=== PATIENT | female | born 1985 | race Caucasian/White ===

== ENCOUNTER 2023-08-11 05:36 | Emergency (ER) | payer OTHER ==
[2023-08-11 05:45] VITALS: BMI 29.7
[2023-08-11] MEDS ORDERED: ACETAMINOPHEN INJECTION 100 ML IVPB ONE (06:13)
[2023-08-11] MEDS: ACETAMINOPHEN 1000 MG/100 ML BAG IVPB ONE (06:37)
[2023-08-11] MEDS ORDERED: KETOROLAC TROMETHAMINE 30 MG/1 ML VIAL ONE (06:39)
[2023-08-11 06:40] LABS: BASO % 0.5 % (0-2.0); EOS % 0.7 % (0-4.5); HEMATOCRIT 40.6 % (32.4-45.2); HEMOGLOBIN 13.7 GM/dL (10.7-15.3); LYMPH % 22.3 % (8-40); MCH 30.4 pg (25.7-33.7); MCHC 33.8 g/dl (32.0-36.0); MEAN CELL VOLUME 89.9 fl (80-96); MEAN PLT VOLUME 8.2 fl (7.5-11.1); MONO % 4.8 % (3.8-10.2); NEUT % 71.7 % (42.8-82.8); PLATELET COUNT 392 10^3/uL (134-434); RBC 4.52 M/mm3 (3.60-5.2); RDW 13.8 % (11.6-15.6); WHITE BLOOD COUNT 10.2 K/mm3 (4.0-10.0)
[2023-08-11] MEDS: SODIUM CHLORIDE 0.9% 500 ML INFUS.BAG IV ONE (06:52)
[2023-08-11] MEDS: KETOROLAC TROMETHAMINE 30 MG/1 ML VIAL IVPUSH ONE (06:52)
[2023-08-11 06:54] LABS: POTASSIUM 4.1 mmol/L (3.5-5.1)
[2023-08-11 06:56] LABS: CALCIUM 9.4 mg/dL (8.5-10.1)
[2023-08-11 06:57] LABS: ALBUMIN 3.8 g/dl (3.4-5.0); INR 0.95 (0.83-1.09); MAGNESIUM 1.9 mg/dL (1.8-2.4)
[2023-08-11 07:00] LABS: ACTIVATED PTT 27.4 SECONDS (25.2-36.5); CREATININE 0.8 mg/dL (0.55-1.3)
[2023-08-11 07:01] LABS: BILIRUBIN,TOTAL 0.5 mg/dL (0.2-1); TOT PROT 7.6 g/dl (6.4-8.2)
[2023-08-11 07:58] LABS: PH,URINE 6.5 (5.0-8.0); URINE APPEARANCE CLEAR; URINE BILIRUBIN NEGATIVE (NEGATIVE); URINE COLOR YELLOW; URINE GLUCOSE (UA) NEGATIVE (NEGATIVE); URINE KETONE NEGATIVE (NEGATIVE); URINE LEUK ESTERASE NEGATIVE (NEGATIVE); URINE NITRITE NEGATIVE (NEGATIVE); URINE PROTEIN NEGATIVE (NEGATIVE); URINE UROBILINOGEN 0.2 mg/dL (0.2-1.0)
[2023-08-11 10:25] VITALS: BP 119/67; PULSE 74; RESP 16; TEMP 98
== END 2023-08-11 10:56 | disposition home or self-care (01) ==
LOC: JER 05:36
PROC: 3E033NZ Introduction of Analgesics, Hypnotics, Sedatives into Peripheral Vein, Percutaneous Approach (ICD-10-PCS; principal; 2023-08-11)
PROC: 3E033GC Introduction of Other Therapeutic Substance into Peripheral Vein, Percutaneous Approach (ICD-10-PCS; 2023-08-11)
DX: R10.11 Right upper quadrant pain (principal)
CPT/HCPCS: 36415; 74176-TC; 76705-TC; 80053; 81003; 83690; 83735; 84703; 85025; 85610; 85730; 86850; 86900; 86901; 87086; 99284-25; J0131

== ENCOUNTER 2023-08-17 23:30 | Emergency (ER) | payer OTHER ==
[2023-08-17 23:40] VITALS: BP 126/80; PULSE 89; RESP 20; TEMP 98; BMI 30.5
[2023-08-18] MEDS: morphine CARPU-JECT 2 MG/1 ML DISP.SYRIN IVPUSH ONE ×2 (00:08→00:46)
[2023-08-18] MEDS ORDERED: morphine SULFATE 4 MG/ML VIAL ONE ×3 (00:09→02:07)
[2023-08-18] MEDS ORDERED: ONDANSETRON 4 MG/2 ML VIAL ONE (00:09)
[2023-08-18 00:33] LABS: BASO % 0.2 % (0-2.0); EOS % 0.1 % (0-4.5); HEMATOCRIT 39.6 % (32.4-45.2); HEMOGLOBIN 13.5 GM/dL (10.7-15.3); LYMPH % 13.3 % (8-40); MCH 30.6 pg (25.7-33.7); MCHC 34.2 g/dl (32.0-36.0); MEAN CELL VOLUME 89.6 fl (80-96); MEAN PLT VOLUME 8.2 fl (7.5-11.1); MONO % 4.5 % (3.8-10.2); NEUT % 81.9 % (42.8-82.8); PLATELET COUNT 430 10^3/uL (134-434); RBC 4.41 M/mm3 (3.60-5.2); WHITE BLOOD COUNT 18.1 K/mm3 (4.0-10.0)
[2023-08-18 00:40] LABS: INR 1.04 (0.83-1.09); PROTHROMBIN TIME (PATIENT) 12.1 SEC (9.7-13.0)
[2023-08-18 00:43] LABS: ACTIVATED PTT 25.3 SECONDS (25.2-36.5); POTASSIUM 3.6 mmol/L (3.5-5.1)
[2023-08-18 00:46] LABS: ALBUMIN 3.9 g/dl (3.4-5.0); BLOOD UREA NITROGEN 14.7 mg/dL (7-18); CALCIUM 9.7 mg/dL (8.5-10.1)
[2023-08-18] MEDS: LACTATED RINGERS SOLUTION 1000 ML INFUS.BAG IV ONE (00:46)
[2023-08-18] MEDS: ONDANSETRON 4 MG/2 ML VIAL IVPUSH ONE (00:46)
[2023-08-18 00:49] LABS: CREATININE 1.1 mg/dL (0.55-1.3)
[2023-08-18 00:51] LABS: BILIRUBIN,TOTAL 0.7 mg/dL (0.2-1); TOT PROT 7.7 g/dl (6.4-8.2)
[2023-08-18] MEDS: ACETAMINOPHEN 1000 MG/100 ML BAG IVPB ONE ×2 (01:37→02:44)
[2023-08-18] MEDS: LIDOCAINE 5% TOPICAL PATCH TP ONE (01:37)
[2023-08-18] MEDS: morphine CARPU-JECT 4 MG/1 ML DISP.SYRIN IVPUSH ONE (02:39)
[2023-08-18] MEDS ORDERED: ACETAMINOPHEN INJECTION 100 ML IVPB ONE (02:40)
[2023-08-18] MEDS ORDERED: LIDOCAINE PATCH REMOVAL MC SCH (22:00)
== END 2023-08-18 03:47 | disposition home or self-care (01) ==
LOC: JER 23:30
PROC: 3E030NZ Introduction of Analgesics, Hypnotics, Sedatives into Peripheral Vein, Open Approach (ICD-10-PCS; principal; 2023-08-18)
PROC: 3E030NZ Introduction of Analgesics, Hypnotics, Sedatives into Peripheral Vein, Open Approach (ICD-10-PCS; 2023-08-18)
PROC: 3E030GC Introduction of Other Therapeutic Substance into Peripheral Vein, Open Approach (ICD-10-PCS; 2023-08-18)
DX: K80.70 Calculus of gallbladder and bile duct without cholecystitis without obstruction (principal); R10.11 Right upper quadrant pain
CPT/HCPCS: 36415; 76705-TC; 80053; 83690; 84703; 85025; 85610; 85730; 86850; 86900; 86901; 93005; 93010; 99285-25; J0131

== ENCOUNTER 2023-08-18 13:10 | Day surgery (SDC) | payer OTHER ==
[2023-08-18 13:16] VITALS: BMI 29.0
[2023-08-18] MEDS ORDERED: ONDANSETRON 4 MG/2 ML VIAL ONE (13:49)
[2023-08-18] MEDS: ONDANSETRON 4 MG/2 ML VIAL IVPUSH ONE (14:37)
[2023-08-18] MEDS ORDERED: morphine SULFATE 4 MG/ML VIAL ONE (14:39)
[2023-08-18] MEDS: morphine CARPU-JECT 4 MG/1 ML DISP.SYRIN IVPUSH ONE ×2 (14:42)
[2023-08-18] MEDS: SODIUM CHLORIDE 0.9% 500 ML INFUS.BAG IV ONE (14:42)
[2023-08-18 15:09] LABS: BASO % 0.1 % (0-2.0); EOS % 0.1 % (0-4.5); HEMATOCRIT 38.7 % (32.4-45.2); HEMOGLOBIN 12.9 GM/dL (10.7-15.3); LYMPH % 12.2 % (8-40); MCH 30.3 pg (25.7-33.7); MCHC 33.5 g/dl (32.0-36.0); MEAN CELL VOLUME 90.6 fl (80-96); MEAN PLT VOLUME 8.8 fl (7.5-11.1); MONO % 5.6 % (3.8-10.2); PLATELET COUNT 381 10^3/uL (134-434); RBC 4.27 M/mm3 (3.60-5.2); RDW 14.2 % (11.6-15.6); WHITE BLOOD COUNT 14.8 K/mm3 (4.0-10.0)
[2023-08-18 15:15] LABS: INR 1.11 (0.83-1.09); PROTHROMBIN TIME (PATIENT) 12.9 SEC (9.7-13.0)
[2023-08-18 15:18] LABS: ACTIVATED PTT 26.7 SECONDS (25.2-36.5)
[2023-08-18 15:27] LABS: POTASSIUM 3.4 mmol/L (3.5-5.1)
[2023-08-18 15:29] LABS: CALCIUM 9.1 mg/dL (8.5-10.1)
[2023-08-18 15:30] LABS: ALBUMIN 3.5 g/dl (3.4-5.0); BLOOD UREA NITROGEN 10.2 mg/dL (7-18)
[2023-08-18 15:33] LABS: CREATININE 0.8 mg/dL (0.55-1.3)
[2023-08-18 15:34] LABS: TOT PROT 7.1 g/dl (6.4-8.2)
[2023-08-18 15:35] LABS: BILIRUBIN,TOTAL 0.9 mg/dL (0.2-1)
[2023-08-18] MEDS ORDERED: PIPERACILLIN/TAZOB 3.375 GM 3.375 GM in DEXTROSE 5%-WATER - 50 ML IVPB SCH (16:00)
[2023-08-18] MEDS: SODIUM CHLORIDE 1,000 ML IV SCH (16:46)
[2023-08-18] MEDS: PIPERACILLIN/TAZOB 3.375 GM 3.375 GM in DEXTROSE 5%-WATER - 50 ML IVPB SCH (16:46)
[2023-08-18] MEDS: ACETAMINOPHEN 1000 MG/100 ML BAG IVPB ONE (18:36)
[2023-08-19] MEDS ORDERED: SERTRALINE HCL 50 MG TABLET (FP) PO ONE ×3 (08:34→16:00)
[2023-08-19] MEDS ORDERED: SERTRALINE HCL 25 MG TABLET (FP) PO ONE ×3 (08:34→16:00)
[2023-08-19 09:14] LABS: HEMATOCRIT 38.8 % (32.4-45.2); MCH 30.2 pg (25.7-33.7); MCHC 33.4 g/dl (32.0-36.0); MEAN CELL VOLUME 90.4 fl (80-96); MEAN PLT VOLUME 8.8 fl (7.5-11.1); PLATELET COUNT 414 10^3/uL (134-434); RBC 4.29 M/mm3 (3.60-5.2); RDW 14.1 % (11.6-15.6); WHITE BLOOD COUNT 9.2 K/mm3 (4.0-10.0)
[2023-08-19] MEDS: SERTRALINE HCL 50 MG, SERTRALINE HCL 25 MG PO SCH ×3 (09:19→18:09)
[2023-08-19 09:27] LABS: POTASSIUM 4.2 mmol/L (3.5-5.1)
[2023-08-19 09:29] LABS: CALCIUM 9.3 mg/dL (8.5-10.1)
[2023-08-19 09:30] LABS: ALBUMIN 3.5 g/dl (3.4-5.0); BLOOD UREA NITROGEN 6.3 mg/dL (7-18); MAGNESIUM 2.3 mg/dL (1.8-2.4)
[2023-08-19 09:33] LABS: CREATININE 0.9 mg/dL (0.55-1.3); PHOSPHOROUS 3.1 mg/dL (2.5-4.9)
[2023-08-19 09:35] LABS: TOT PROT 7.1 g/dl (6.4-8.2)
[2023-08-19] MEDS ORDERED: SERTRALINE HCL 25 MG TABLET (FP) PO SCH (10:00)
[2023-08-19] MEDS ORDERED: BUPIVACAINE HCL/PF 0.25% (2.5MG/ML) 10 ML VIAL ONE (12:34)
[2023-08-19] MEDS ORDERED: PROPOFOL 20 ML ONE ×2 (14:06→14:43)
[2023-08-19] MEDS ORDERED: FENTANYL CITRATE/PF 50 MCG/ML VIAL ONE ×6 (14:06→16:50)
[2023-08-19] MEDS ORDERED: MIDAZOLAM HCL 2 MG/2 ML SINGLE DOSE VIAL ONE (14:07)
[2023-08-19] MEDS ORDERED: DEXAMETHASONE SOD PHOSPHATE 4 MG/1 ML VIAL ONE ×2 (14:07→14:24)
[2023-08-19] MEDS ORDERED: ROCURONIUM BROMIDE 50 MG/5 ML SYRINGE ONE (14:07)
[2023-08-19] MEDS ORDERED: KETOROLAC TROMETHAMINE 30 MG/1 ML VIAL ONE (14:07)
[2023-08-19] MEDS ORDERED: LIDOCAINE HCL/PF 2% SDV 5ML VIAL ONE (14:07)
[2023-08-19] MEDS ORDERED: ONDANSETRON 4 MG/2 ML VIAL ONE (14:07)
[2023-08-19] MEDS ORDERED: ONDANSETRON 4 MG/2 ML VIAL IVPUSH PRN ×2 (14:11→16:00)
[2023-08-19] MEDS ORDERED: ACETAMINOPHEN 1000 MG/100 ML BAG IVPB PRN ×2 (14:11→16:00)
[2023-08-19] MEDS ORDERED: oxyCODONE HCL 5 MG TABLET PO PRN ×3 (14:11→16:00)
[2023-08-19] MEDS ORDERED: PROMETHAZINE HCL 25 MG/1 ML VIAL IVPB PRN ×2 (14:11→16:00)
[2023-08-19] MEDS ORDERED: PIPERACILLIN/TAZOBACTAM 3.375 GM VIAL IVPB ONE (14:13)
[2023-08-19] MEDS: PIPERACILLIN/TAZOBACTAM 3.375 GM VIAL IVPB ONE (14:35)
[2023-08-19] MEDS ORDERED: SEVOFLURANE 250 ML BTL ONE (14:43)
[2023-08-19] MEDS: BUPIVACAINE HCL/PF 0.25% (2.5MG/ML) 10 ML VIAL IJ ONE (14:47)
[2023-08-19] MEDS ORDERED: GLYCOPYRROLATE 0.2 MG/1 ML VIAL ONE (15:15)
[2023-08-19] MEDS ORDERED: NEOSTIGMINE METHYLSULFATE 0.5 MG/1 ML - 10 ML MDV ONE (15:15)
[2023-08-19] MEDS ORDERED: ACETAMINOPHEN INJECTION 100 ML IVPB ONE (16:29)
[2023-08-19] MEDS: ACETAMINOPHEN 1000 MG/100 ML BAG IVPB PRN (16:30)
[2023-08-19] MEDS: LACTATED RINGERS SOLUTION 1,000 ML IV SCH ×2 (17:13→17:19)
[2023-08-19] MEDS: oxyCODONE HCL 5 MG TABLET PO PRN (19:35)
[2023-08-19] MEDS ORDERED: ACETAMINOPHEN 1000 MG/100 ML BAG IVPB SCH (20:30)
[2023-08-19] MEDS: ACETAMINOPHEN 1000 MG/100 ML BAG IVPB SCH (21:31)
[2023-08-20] MEDS: SERTRALINE HCL 50 MG, SERTRALINE HCL 25 MG PO SCH (09:39)
[2023-08-20 09:43] LABS: HEMOGLOBIN 11.2 GM/dL (10.7-15.3); MCH 31.1 pg (25.7-33.7); MCHC 34.1 g/dl (32.0-36.0); MEAN CELL VOLUME 91.4 fl (80-96); MEAN PLT VOLUME 8.7 fl (7.5-11.1); PLATELET COUNT 318 10^3/uL (134-434); RBC 3.61 M/mm3 (3.60-5.2); RDW 14.2 % (11.6-15.6); WHITE BLOOD COUNT 10.9 K/mm3 (4.0-10.0)
[2023-08-20] MEDS ORDERED: SERTRALINE HCL 25 MG TABLET (FP) PO SCH (10:00)
[2023-08-20] MEDS ORDERED: SERTRALINE HCL 50 MG TABLET (FP) PO SCH (10:00)
[2023-08-20 10:01] LABS: POTASSIUM 3.5 mmol/L (3.5-5.1)
[2023-08-20 10:10] LABS: ALBUMIN 2.9 g/dl (3.4-5.0); BLOOD UREA NITROGEN 5.3 mg/dL (7-18)
[2023-08-20 10:11] LABS: BILIRUBIN,TOTAL 0.8 mg/dL (0.2-1)
[2023-08-20 10:12] LABS: CALCIUM 8.5 mg/dL (8.5-10.1); TOT PROT 5.9 g/dl (6.4-8.2)
[2023-08-20 10:13] LABS: CREATININE 0.7 mg/dL (0.55-1.3)
[2023-08-20 10:30] VITALS: RESP 18
[2023-08-20 14:18] VITALS: BP 115/73; PULSE 83; TEMP 98.7
== END 2023-08-20 15:00 | disposition home or self-care (01) ==
LOC: JER 13:10 → SUATTDRO 14:11 → UNDOADMIN 14:11 → JASUSAT 14:11 → JERBED 14:11 → J6S 15:20 → JASUSAT 08-19 15:13 → J6S 08-19 16:30 → JASUSAT 08-19 16:30 → J6S 08-20 14:57 → JASUSAT 08-20 15:00
PROVIDERS: ATTEND Surgery
PROC: 0FT44ZZ Resection of Gallbladder, Percutaneous Endoscopic Approach (ICD-10-PCS; principal; 2023-08-19 13:30)
DX: K80.00 Calculus of gallbladder with acute cholecystitis without obstruction (principal)
CPT/HCPCS: 36415; 71045-TC-FY; 80053; 83690; 83735; 84100; 84703; 85025; 85027; 85610; 85730; 86850; 86900; 86901; 88304-TC; 93005; 93010; 94010; 94760; 99285-25; J0131